=== PATIENT | male | born 1945 | race Hispanic/Latino ===

== ENCOUNTER → 2017-12-10 | Outpatient (CLI) | payer OTHER ==
[~2017-12-10] MED LIST: ASPI-1012 PO; INSLAN SQ; INSREG; LISI2.5T2 PO; LORA-705 PO; METF-446 PO; SIMV20TA6 PO; THERAGESIC TP
== END | disposition home or self-care (01) ==
LOC: RAH 12:30
PROVIDERS: ATTEND Physical Medicine & Rehabilitation
DX: M47.896 Other spondylosis, lumbar region (principal); M48.061 Spinal stenosis, lumbar region without neurogenic claudication; M51.36 Other intervertebral disc degeneration, lumbar region
CPT/HCPCS: 72148

== ENCOUNTER → 2018-03-26 | Outpatient (CLI) | payer OTHER | END | disposition home or self-care (01) | LOC: SHCH 09:01 | PROVIDERS: ATTEND Internal Medicine Cardiovascular Disease | DX: R94.31 Abnormal electrocardiogram [ECG] [EKG] (principal); I10 Essential (primary) hypertension | CPT/HCPCS: 71046; 93306 ==

== ENCOUNTER → 2018-03-26 | Outpatient (CLI) | payer OTHER | END | disposition home or self-care (01) | LOC: OIH 09:04 | PROVIDERS: ATTEND Internal Medicine Cardiovascular Disease | DX: Z01.810 Encounter for preprocedural cardiovascular examination (principal); R06.00 Dyspnea, unspecified | CPT/HCPCS: 71046 ==

== ENCOUNTER 2018-04-10 05:59 | Observation (INO) | payer OTHER | END 2018-04-11 14:00 | disposition home or self-care (01) | LOC: DAH 05:59 → DAHIP 06:00 → 4BH 13:07 ==

== ENCOUNTER → 2018-05-12 | Outpatient (CLI) | payer OTHER ==
[~2018-05-12] MED LIST changes: +ALBU8.5H8 IH; +DOXA2TAB2 PO; +ESOM40CA54 PO; +FISH1CAP27 PO; +FLUT16H NS; +GABA-529 PO; -INSLAN SQ; -INSREG; +LISI-613 PO; -LISI2.5T2 PO; -LORA-705 PO; +MV-M1TAB20 PO; +NOVALOG INSULIN SQ; -THERAGESIC TP; +VITA1TAB22 PO
== END | disposition home or self-care (01) ==
LOC: RAH 09:43
PROVIDERS: ATTEND Neurological Surgery
DX: M47.816 Spondylosis without myelopathy or radiculopathy, lumbar region (principal); M48.07 Spinal stenosis, lumbosacral region
CPT/HCPCS: 72100

== ENCOUNTER → 2020-02-15 | Outpatient (CLI) | payer OTHER ==
[~2020-02-15] MED LIST changes: +SIMV-43 PO; -SIMV20TA6 PO
== END | disposition home or self-care (01) ==
LOC: SHCH 08:26
PROVIDERS: ATTEND Internal Medicine Cardiovascular Disease
DX: I65.23 Occlusion and stenosis of bilateral carotid arteries (principal); I35.8 Other nonrheumatic aortic valve disorders; R06.00 Dyspnea, unspecified; I10 Essential (primary) hypertension; E78.5 Hyperlipidemia, unspecified; E11.9 Type 2 diabetes mellitus without complications
CPT/HCPCS: 93306; 93356; 93880

== ENCOUNTER → 2020-03-21 | Outpatient (CLI) | payer OTHER | END | disposition home or self-care (01) | LOC: OIH 11:30 | PROVIDERS: ATTEND Internal Medicine Cardiovascular Disease | DX: Z13.6 Encounter for screening for cardiovascular disorders (principal) | CPT/HCPCS: 75571 ==

== ENCOUNTER → 2020-10-05 | Outpatient (CLI) | payer OTHER ==
[~2020-10-05] MED LIST changes: -LISI-613 PO; +LISI20TA24 PO
== END | disposition home or self-care (01) ==
LOC: SHCH 10:47
PROVIDERS: ATTEND Internal Medicine Cardiovascular Disease
DX: I10 Essential (primary) hypertension (principal); R07.9 Chest pain, unspecified
CPT/HCPCS: 93306; 93356

== ENCOUNTER → 2022-10-02 | Outpatient (CLI) | payer OTHER | END | disposition home or self-care (01) | LOC: SHCH 08:40 | PROVIDERS: ATTEND Internal Medicine Cardiovascular Disease | DX: I65.23 Occlusion and stenosis of bilateral carotid arteries (principal); I35.1 Nonrheumatic aortic (valve) insufficiency; I11.9 Hypertensive heart disease without heart failure; E11.9 Type 2 diabetes mellitus without complications; E78.5 Hyperlipidemia, unspecified | CPT/HCPCS: 93306; 93880 ==

== ENCOUNTER → 2023-06-19 | Outpatient (CLI) | payer OTHER ==
[~2023-06-19] MED LIST changes: +VITA-427 PO; -VITA1TAB22 PO
[2023-06-19 15:12] LABS: CREATININE 1.2 mg/dL (0.5-1.3)
== END | disposition home or self-care (01) ==
LOC: LAB 14:05
PROVIDERS: ATTEND Otolaryngology
DX: H93.19 Tinnitus, unspecified ear (principal)
CPT/HCPCS: 36415; 82565; 84520

== ENCOUNTER → 2023-06-25 | Outpatient (CLI) | payer OTHER ==
[~2023-06-25] MED LIST changes: +GADOTERATE MEGLUMINE 10 MMOL/20 ML VIAL IV ONE
== END | disposition home or self-care (01) ==
LOC: RAH 08:25
PROVIDERS: ATTEND Otolaryngology
DX: G93.89 Other specified disorders of brain (principal); H93.19 Tinnitus, unspecified ear
CPT/HCPCS: 70553; A9575

== ENCOUNTER → 2024-07-04 | Outpatient (CLI) | payer OTHER ==
[~2024-07-04] MED LIST changes: -ESOM40CA54 PO; +ESOM40CA66 PO; -GADOTERATE MEGLUMINE 10 MMOL/20 ML VIAL IV ONE
== END | disposition home or self-care (01) ==
LOC: SHCH 09:36
PROVIDERS: ATTEND Internal Medicine Cardiovascular Disease
DX: I35.1 Nonrheumatic aortic (valve) insufficiency (principal); I10 Essential (primary) hypertension
CPT/HCPCS: 93306

== ENCOUNTER → 2024-07-06 | Outpatient (CLI) | payer OTHER ==
[2024-07-06] MEDS: REGADENOSON 0.4 MG/5 ML PF SYG IVP ONE (11:41)
== END | disposition home or self-care (01) ==
LOC: SHCH 10:22
PROVIDERS: ATTEND Internal Medicine Cardiovascular Disease
DX: I10 Essential (primary) hypertension (principal); R06.00 Dyspnea, unspecified; R00.8 Other abnormalities of heart beat; Z79.899 Other long term (current) drug therapy
CPT/HCPCS: 78452; 93017; J2785; A9500 ×2

== ENCOUNTER 2024-07-18 11:25 | Emergency (ER) | payer OTHER ==
[~2024-07-18] VITALS: Ht 165.1 cm; Wt 64.9 kg
--- NOTE | 2024-07-18 11:53 | ERN ---
General Chief Complaint: Foreign Body Stated Complaint: RIGHT EAR FOREIGN BODY Time Seen by MD: 11:27 History of Present Illness Initial Comments Mr Larose is a 78-year-old male who comes in today with a chief complaint of a broken hearing aid tip lodged in the right ear canal this occurring yesterday. He reports that there is a small circular police of the hearing aid that became dislodged and in his remaining in his ear. He denies pain, drainage, bleeding, tinnitus or vertigo. Patient reports that his hearing is slightly muffled but otherwise feels normal Allergies: Coded Allergies: No Known Allergies (Unverified Allergy, Unknown, 03/31/15) Home Meds Reported Medications [Novalog Insulin] No Conflict Check, 15 SQ HS PRN for HYPERGLYCEMIA 04/07/18 Albuterol Sulfate (Proair Hfa) 8.5 Gm Hfa.aer.ad, 2 PUFF IH DAILY PRN for S HORTNESS OF BREATH 04/07/18 Fluticasone Propionate (Fluticasone Propionate) 16 Gm [place].susp, 1 PUFF NS BID 04/07/18 Gabapentin (Gabapentin) 100 Mg Capsule, 100 MG PO DAILY, CAP 04/07/18 Esomeprazole Magnesium (Esomeprazole Magnesium) 40 Mg Capsule.dr, 40 MG PO DAILY, CAP 04/07/18 [place]-3 Fatty Acids/Fish Oil ([place] 3 1,000 mg Softgel) 1 Each Capsule, 1 EACH PO BID, CAP 04/07/18 Mv-Mn/Iron/FA/Herbal Cmplx#190 (Vitamin D3 Complete Caplet) 1 Each Tablet, 1 EACH PO DAILY, TAB 04/07/18 Vitamin B Complex (Vitamin B Complex) 1 Each Tablet, 1 EACH PO DAILY, TAB 04/07/18 Doxazosin Mesylate (Doxazosin Mesylate) 2 Mg Tablet, 2 MG PO DAILY, TAB 04/07/18 Lisinopril (Lisinopril) 20 Mg Tablet, 10 MG PO DAILY, TAB 04/07/18 Simvastatin (Simvastatin) 20 Mg Tablet, 20 MG PO HS, TAB 05/11/15 Aspirin (ASPIRIN) 325 Mg Tablet, 325 MG PO HS, TAB 05/11/15 Metformin HCl (Metformin HCl) 1,000 Mg Tablet, 1000 MG PO BID, TAB 05/11/15 Past Medical History Past Medical History: Diabetes-Type II, Hypertension Past Surgical History: Other ROS Dictation Constitutional: Negative for fever,chills, and weight loss Eyes: Negative for injury, pain,redness, an she feeling she given the medicine d discharge ENT: Care positive for foreign body sensation in the right ear Cardiovascular: Negative for chest pain, palpitations, and edema Respiratory: Negative for shortness of breath, cough, and wheezing, Abdomen/GI: Negative for abdominal pain, nausea, vomiting, diarrhea, and constipation Back: Negative for injury and pain : Negative for injury, bleeding and discharge MS/Extremity: Negative for injury and deformity Skin: Negative for rash, and discoloration Neuro: Negative for headache, weakness, numbness, tingling, and seizure Psych: Negative for suicide ideation, homicidal ideation, and hallucinations Physical Exam Physical Exam Dictation General: awake, alert, NAD Head/Face: Normocephalic, atraumatic Eyes: PERRL, EOMI, vision at baseline ENT: Visible plastic hearing a tip lodged in the external auditory canal, can not mildly erythematous no discharge or bleeding. Left ear canal normal Neck: Trachea midline, supple, no nuchal rigidity Cardiovascular: RRR, normal S1/S2, No MRGs, no JVD Respiratory: CTAB, no respiratory distress, No rales or wheezes Abdomen: Soft, non-tender, non-distended, normal bowel sounds, no guarding or rebound. Skin: Warm, dry, normal turgor, no rash MS/Extremity: Pulses equal, no cyanosis, neurovascular intact, FROM Neuro: COAx4, GCS 15, strength 5/5, CN 2-12 intact, normal cerebellar exam, normal gait, Psych: Normal behavior, mood, and affect normal MDM Patient had a non in bed, visibly foreign body, hearing a tip, in the external ear canal. No signs of infection. Removal was complete safe in the ED without sedation. No antibiotics required. Patient instructed to follow up with the audiology vendor for replacement or repair ED Course Vital Signs Date Time Temp Pulse Resp B/P (MAP) Pulse Ox O2 Delivery O2 Flow Rate FiO2 07/18/24 11:26 99.0 71 12 130/52 95 Room Air 0 Additional Procedures Additional Procedures : Progress Procedure Right ear foreign body removal Informed consent was obtained and patient was seated upright position. Nfl Player held the otoscope and auricle. Alligator forceps were used to carefully grasped and removed hearing aid dome tip in 1 attempt. Canal was reinspected. No retained foreign body. No bleeding or complications were noted. DX & DISP Disposition: Discharge Departure Impression: Primary Impression: Foreign body in right ear, initial encounter Condition: Stable Referrals: TIERRA STRANGE MD (PCP) MARIA ELENA MTZ MD July 18, 2024 11:53
[2024-07-18 12:03] VITALS: BP 133/78; PULSE 80; RESP 16; TEMP 98; O2SAT 98
== END 2024-07-18 12:05 | disposition home or self-care (01) ==
LOC: EDH 11:25
DX: T16.1XXA Foreign body in right ear, initial encounter (principal); E11.9 Type 2 diabetes mellitus without complications; I10 Essential (primary) hypertension; Z79.82 Long term (current) use of aspirin; Z79.84 Long term (current) use of oral hypoglycemic drugs; Z79.899 Other long term (current) drug therapy; W44.G1XA Audio device entering into or through a natural orifice, initial encounter
CPT/HCPCS: 69200; 99284

== ENCOUNTER 2024-09-16 13:40 | Emergency (ER) | payer OTHER ==
[~2024-09-16] VITALS: Ht 165.1 cm; Wt 65.3 kg
[2024-09-16] MEDS: LIDOCAINE HCL-MPF 2% 5ML VIAL IM STA (14:08)
[2024-09-16] MEDS ORDERED: CIPR7.5D7 OTIC (14:50)
--- NOTE | 2024-09-16 14:51 | ERN ---
General Chief Complaint: Earache Stated Complaint: LT EARACHE Time Seen by MD: 13:43 Source: patient History of Present Illness Initial Comments In his is a 79-year-old male coming in complaining of left ear pain. He states that he was sent over from his PCP for further evaluation. No fever no chills. Allergies: Coded Allergies: No Known Allergies (Unverified Allergy, Unknown, 03/31/15) Home Meds Reported Medications [Novalog Insulin] No Conflict Check, 15 SQ HS PRN for HYPERGLYCEMIA 04/07/18 Albuterol Sulfate (Proair Hfa) 8.5 Gm Hfa.aer.ad, 2 PUFF IH DAILY PRN for SHORTNESS OF BREATH 04/07/18 Fluticasone Propionate (Fluticasone Propionate) 16 Gm [place].susp, 1 PUFF NS BID 04/07/18 Gabapentin (Gabapentin) 100 Mg Capsule, 100 MG PO DAILY, CAP 04/07/18 Esomeprazole Magnesium (Esomeprazole Magnesium) 40 Mg Capsule.dr, 40 MG PO DAILY, CAP 04/07/18 [place]-3 Fatty Acids/Fish Oil ([place] 3 1,000 mg Softgel) 1 Each Capsule, 1 EACH PO BID, CAP 04/07/18 Mv-Mn/Iron/FA/Herbal Cmplx#190 (Vitamin D3 Complete Caplet) 1 Each Tablet, 1 EACH PO DAILY, TAB 04/07/18 Vitamin B Complex (Vitamin B Complex) 1 Each Tablet, 1 EACH PO DAILY, TAB 04/07/18 Doxazosin Mesylate (Doxazosin Mesylate) 2 Mg Tablet, 2 MG PO DAILY, TAB 04/07/18 Lisinopril (Lisinopril) 20 Mg Tablet, 10 MG PO DAILY, TAB 04/07/18 Simvastatin (Simvastatin) 20 Mg Tablet, 20 MG PO HS, TAB 05/11/15 Aspirin (ASPIRIN) 325 Mg Tablet, 325 MG PO HS, TAB 05/11/15 Metformin HCl (Metformin HCl) 1,000 Mg Tablet, 1000 MG PO BID, TAB 05/11/15 Past Medical History Past Medical History: Diabetes-Type II, Hypertension Past Surgical History: Other ROS Dictation CONSTITUTIONAL: No chills, no fever, no weakness, no diaphoresis, no malaise. HEAD/FACE: No signs of trauma. EENT: No eye pain, no blurred vision, no tearing, no double vision, ear pain, no ear discharge, no nose pain, no nasal congestion, no throat pain, no throat swelling, no mouth pain. RESPIRATORY: No cough, no orthopnea, no SOB, no stridor, no wheezing. CARDIOVASCULAR: No chest pain, no edema, no palpitations, no syncope. GASTROINTESTINAL/ABDOMINAL: No abdominal pain, no constipation, no diarrhea, no nausea, no vomiting. GENITOURINARY: No abnormal discharge, no dysuria, no frequent urination, no hematuria. No complaints of pain in the genitals. MUSCULOSKELETAL: No back pain, no gout, no joint pain, no joint swelling, no muscle pain, no muscle stiffness, no neck pain. INTEGUMENTARY: No change in color, no change in hair/nails, no dryness, no lesion, no lumps, no rash. NEUROLOGICAL/PSYCH: No anxiety, not depressed, no emotional problem, no headache, no numbness, no pre-existing deficit, no history of seizures, no tremors, no weakness. HEMATOLOGIC/LYMPHATIC: Not anemic, no history of blood clots, no apparent bleeding, no bruising, glands not swollen. All Systems Negative, Except as Noted. Physical Exam Physical Exam Dictation VITAL SIGNS: Reviewed. GENERAL APPEARANCE: Alert, oriented x3, no acute distress, obese. HEAD AND FACE: Non-traumatic. EYES: PERRL, pink conjunctivas, eyelid no trauma, anterior chamber clear. EARS: Pinnas intact and no signs of trauma or erythema. Ear canals clear and no discharge. TMs no erythema. NOSE: No discharge, no bleeding. OROPHARYNX: Mouth normal, teeth no caries, tongue pink. Pharynx clear, no erythema. Tonsils no exudates, no abscesses noted. Mucous membrane moist. NECK: Supple, non-tender, no thyromegaly, no masses, no JVD, no bruits. BREAST: Deferred. CHEST: No tenderness, no crepitus, no paradoxical movement, no retractions. LUNGS: Clear, well-ventilated, symmetric, no rales, no wheezing, no rhonchi, no stridor, good breath sounds bilaterally. HEART: Regular rate, regular rhythm, no murmur, no gallops. VASCULAR: No peripheral edema. ABDOMEN: Soft, positive bowel sounds, nondistended, no guarding, nontender, no rebound, no masses no hepatomegaly, no splenomegaly, no Higginbotham's sign, no hernias. RECTAL: Deferred. GENITAL: Deferred. NEUROLOGICAL: Normal speech, gross motor function intact, gross sensory function intact. MUSCULOSKELETAL: Neck nontender, full range of motion, back nontender, full range of motion. EXTREMITIES: Nontender, full range of motion. SKIN: Color pink, dry, no turgor, no rash, no lacerations, no abrasions, no contusions. LYMPHATICS: Deferred. Results Laboratory and Microbiology Labs Reviewed?: Yes MDM MDM: Differential diagnosis: Otitis externa, Rationale: Tests considered and ordered secondary to shared decision making include: Previous outside records reviewed: Old ER visits. Risk of complication and/or morbidity or mortality of patient management: None Medications-Per medication reconciliation Need for hospitalization: Patient does not meet criteria for hospitalization. Need for emergency major/minor surgery: No Patient is a 79-year-old male currently complaining of earache. Patient received lidocaine topical states he feels much better we will be discharged in stable condition with a diagnosis of otitis externa medication will be provided for symptomatic relief. ED Course Orders Procedure Category Date Status Time Lidocaine Hcl-Mpf 2% PHA 09/16/24 Complete 5ml Vial (Lidocaine 14:03 Current Medications Medications (Trade) Dose Ordered Sig/Dasia Route PRN Reason Start Time Stop Time Status Last Admin Dose Admin Lidocaine HCl (Lidocaine HCl-Mpf 2% 5ml Vial) 5 ml ONCE STAT IM 09/16/24 14:03 09/16/24 14:06 DC 09/16/24 14:08 Vital Signs Date Time Temp Pulse Resp B/P (MAP) Pulse Ox O2 Delivery O2 Flow Rate FiO2 09/16/24 13:49 97.5 72 20 106/46 99 Room Air* 0 21 09/16/24 13:41 97.5 72 20 106/46 99 Room Air DX & DISP Disposition: Discharge Departure Impression: Primary Impression: Otitis externa Condition: Stable Scripts Ciprofloxacin HCl/Dexameth (Ciproflox-Dexameth Otic Susp) 0.3 %-0.1 % Drops.susp 4 DROP OTIC BID for 7 Days, #7.5 ML 0 Refills Prov: NORMA MUNOZ MD 09/16/24 Additional Instructions: FOLLOW-UP WITH PRIMARY CARE PROVIDER IN 1 TO 2 DAYS. TAKE MEDICATIONS DIRECTED HERE IN THE EMERGENCY ROOM. OKAY TO CONTINUE HOME MEDICATIONS UNLESS OTHERWISE DISCUSSED DURING YOUR VISIT IN THE EMERGENCY ROOM TODAY. RETURN TO YOUR NEAREST EMERGENCY ROOM IF SYMPTOMS WORSEN OR IF THERE IS NO IMPROVEMENT. CALL 911 IF YOU NEED IMMEDIATE ASSISTANCE. TAKE TYLENOL [id number] NEEDED AND IF NO CONTRAINDICATIONS ARE PRESENT. INCREASE ORAL HYDRATION. A WOUND CULTURE OR URINE CULTURE WAS ORDERED HERE IN THE EMERGENCY ROOM DEPARTMENT PLEASE FOLLOW-UP WITH PRIMARY CARE PROVIDER AND ADVISE THEM TO GET REPORTS FROM OUR FACILITY. IF YOU HAD ANY ALBERTINA WRAP/SPLINTS THAT WERE APPLIED HERE, PLEASE DO NOT REMOVE THEM UNTIL YOU SEE YOUR PRIMARY CARE OR SPECIALTY. Referrals: Referrals: TIERRA STRANGE MD (PCP) Time of Disposition: 14:50 NORMA MUNOZ MD Sep 16, 2024 14:50
[2024-09-16 14:52] VITALS: BP 115/52; PULSE 70; RESP 20; TEMP 97.5; O2SAT 99
== END 2024-09-16 15:00 | disposition home or self-care (01) ==
LOC: EDH 13:43
DX: H60.92 Unspecified otitis externa, left ear (principal); E11.9 Type 2 diabetes mellitus without complications; I10 Essential (primary) hypertension; Z79.82 Long term (current) use of aspirin; Z79.84 Long term (current) use of oral hypoglycemic drugs; Z79.899 Other long term (current) drug therapy
CPT/HCPCS: 99283; 96372; J3490

== ENCOUNTER 2025-01-21 11:31 | Emergency (ER) | payer OTHER ==
[~2025-01-21] VITALS: Ht 165.1 cm; Wt 64.4 kg
[~2025-01-21 11:31] MED LIST changes: +CIPR7.5D7 OTIC
--- NOTE | 2025-01-21 12:44 | HMCIMG ---
STUDY: X-RAY OF THE LUMBAR SPINE, 3 VIEWS HISTORY: Fall with low back pain. TECHNIQUE: Three views of the lumbar spine are submitted for interpretation. COMPARISON: None provided. FINDINGS: Vertebral bodies: Lumbar vertebral bodies are normal in height with preserved overall lumbar lordosis. No acute compression fracture is identified. Intervertebral disc spaces: Degenerative changes are present in the form of multilevel mild reduction in disc heights with associated endplate sclerosis and marginal osteophytes, more severe at L5???S1 where there is a vacuum phenomenon. Postoperative changes: Bilateral transpedicular screw fixation is present at L4 and L5 with an interbody disc spacer at L4???L5. Hardware appears intact without obvious complication on radiographs. Alignment: No evidence of spondylolysis or spondylolisthesis. Sacroiliac joints: Mild bilateral sacroiliitis is noted. Soft tissues: Prevertebral and paravertebral soft tissues are unremarkable. IMPRESSION: * No acute fracture or malalignment of the lumbar spine. * Postoperative changes with bilateral transpedicular screw fixation at L4???L5 and interbody disc spacer at L4???L5. * Multilevel degenerative disc disease with endplate sclerosis and osteophytes, most pronounced at L5???S1 with vacuum phenomenon. * Mild bilateral sacroiliitis. * MRI of the lumbar spine and sacroiliac joints may be helpful for further evaluation if clinically indicated. /[place]
--- NOTE | 2025-01-21 13:33 | HMCIMG ---
EXAM: CT Head Without IV contrast. CLINICAL HISTORY: fall, head injury dizziness TECHNIQUE: Axial computed tomography images of the head/brain without intravenous contrast. COMPARISON: None provided. FINDINGS: BRAIN: There is diffuse cerebral atrophy, evidenced by prominence of the cortical sulci and ventricular system, compatible with age-related changes. Multiple scattered areas of low attenuation in the periventricular and deep white matter, consistent with chronic microvascular ischemic changes. No evidence of acute hemorrhage. No mass lesion. No CT evidence for acute territorial infarct. No midline shift or extra-axial collections. VENTRICLES: No hydrocephalus. ORBITS: The orbits are unremarkable. SINUSES AND MASTOIDS: Minimal opacification of left mastoid air cells, suggestive of mastoiditis. The paranasal sinuses are clear. BONES: No fracture. SOFT TISSUES: Unremarkable. IMPRESSION: 1. No acute intracranial findings. 2. Minimal left mastoid air cell opacification, suggestive of mastoiditis. /[place]
--- NOTE | 2025-01-21 13:35 | HMCIMG ---
EXAM: CT Cervical Spine Without IV contrast. CLINICAL HISTORY: fall, head injury dizziness TECHNIQUE: Axial computed tomography images of the cervical spine without intravenous contrast. Sagittal and coronal reformatted images were generated. COMPARISON: None provided. FINDINGS: ALIGNMENT: Bony alignment is anatomic. DEGENERATIVE CHANGES: Multilevel degenerative changes in the form of marginal osteophytes, uncovertebral joint hypertrophy, facet joint osteoarthritis, and moderate to severe intervertebral disc space narrowing, more predominant at C1-C2, C5-C6, and C6-C7 levels. SOFT TISSUES: The prevertebral soft tissues are within normal limits. BONES: No acute fracture or aggressive appearing osseous lesion. IMPRESSION: 1. No acute osseous injury. 2. Moderate to severe cervical spondylosis. /[place]
[2025-01-21 14:09] LABS: IMMATURE GRANULOCYTE ABSOLUTE 0.05 K/uL (0-1); NUCLEATED RED BLOOD CELLS 0.0 % (0.0-0.19); PLATELET COUNT (AUTO) 194 K/uL (130-400); RED BLOOD CELL COUNT(AUTO) 4.46 MIL/uL (4.50-6.20); RED CELL DISTRIBUTION WIDTH 14.1 % (11.0-15.5); WHITE BLOOD COUNT (AUTO) 10.7 K/uL (4.8-10.8)
[2025-01-21 14:27] LABS: CREATININE 1.2 mg/dL (0.5-1.3); GLOMERULAR FILTR. RATE CALC 62.0 mL/min (>90); GLUCOSE,RANDOM 168.0 mg/dL (70-105); SODIUM SERUM 143.0 mmol/L (136-145); UREA NITROGEN, BLOOD 23.0 mg/dL (7-18)
--- NOTE | 2025-01-21 14:34 | ERN ---
ED Note History of Present Illness Stated Complaint: S/P FALL Chief Complaint: Mechanical Fall Time Seen by MD: 11:32 Time Seen by Midlevel: 11:36 Dictation: 79-year-old male with a history of hypertension coming in status post mechanical fall. Patient states it with a educated in the shower slipped fell backwards, tried to hang onto a bar with a handle on the wall but broke and fell back and hit his head on the tile. Denies any LOC. denies any blood thinners. Patient is complaining of a headache, neck pain and lower back pain. Patient states he has a previous back surgery. Allergies: Coded Allergies: No Known Allergies (Unverified Allergy, Unknown, 03/31/15) Home Meds Active Scripts Ciprofloxacin HCl/Dexameth (Ciproflox-Dexameth Otic Susp) 0.3 %-0.1 % Drops.susp, 4 DROP OTIC BID for 7 Days, #7.5 ML 0 Refills Prov:NORMA MUNOZ MD 09/16/24 Reported Medications [Novalog Insulin] No Conflict Check, 15 SQ HS PRN for HYPERGLYCEMIA 04/07/18 Albuterol Sulfate (Proair Hfa) 8.5 Gm Hfa.aer.ad, 2 PUFF IH DAILY PRN for SHORTNESS OF BREATH 04/07/18 Fluticasone Propionate (Fluticasone Propionate) 16 Gm [place].susp, 1 PUFF NS BID 04/07/18 Gabapentin (Gabapentin) 100 Mg Capsule, 100 MG PO DAILY, CAP 04/07/18 Esomeprazole Magnesium (Esomeprazole Magnesium) 40 Mg Capsule.dr, 40 MG PO DAILY, CAP 04/07/18 Christmas-3 Fatty Acids/Fish Oil ([place] 3 1,000 mg Softgel) 1 Each Capsule, 1 EACH PO BID, CAP 04/07/18 Mv-Mn/Iron/FA/Herbal Cmplx#190 (Vitamin D3 Complete Caplet) 1 Each Tablet, 1 EACH PO DAILY, TAB 04/07/18 Vitamin B Complex (Vitamin B Complex) 1 Each Tablet, 1 EACH PO DAILY, TAB 04/07/18 Doxazosin Mesylate (Doxazosin Mesylate) 2 Mg Tablet, 2 MG PO DAILY, TAB 04/07/18 Lisinopril (Lisinopril) 20 Mg Tablet, 10 MG PO DAILY, TAB 04/07/18 Simvastatin (Simvastatin) 20 Mg Tablet, 20 MG PO HS, TAB 05/11/15 Aspirin (ASPIRIN) 325 Mg Tablet, 325 MG PO HS, TAB 05/11/15 Metformin HCl (Metformin HCl) 1,000 Mg Tablet, 1000 MG PO BID, TAB 05/11/15 Past Medical History Past Medical History: Diabetes-Type II, Hypertension Surgical History: Other Surgical History Other: BACK AND EAR SX Review of System Dictation Constitutional: Negative for fever,chills, and weight loss Eyes: Negative for injury, pain,redness, and discharge ENT: Negative for injury,pain or swelling Cardiovascular: Negative for chest pain, palpitations, and edema Respiratory: Negative for shortness of breath, cough, and wheezing, Abdomen/GI: Negative for abdominal pain, nausea, vomiting, diarrhea, and constipation Back: Negative for injury and pain : Negative for injury, bleeding and discharge MS/Extremity: Negative for injury and deformity Skin: Negative for rash, and discoloration Neuro: Complaining of the headache, negative weakness negative numbness, negative tingling Psych: Negative for suicide ideation, homicidal ideation, and hallucinations Review of Systems: was completed Initial Vital Sign VS Vital Signs Date Time Temp Pulse Resp B/P (MAP) Pulse Ox O2 Delivery O2 Flow Rate FiO2 01/21/25 11:32 96.3 68 18 137/71 99 Room Air 0 01/21/25 12:58 21 Physical Exam Dictation Constitutional: Negative for fever,chills, and weight loss Eyes: Negative for injury, pain,redness, and discharge ENT: Negative for injury,pain or swelling, no drainage, no pain on pulling of the pain and, no pain around the mastoid bone Cardiovascular: Negative for chest pain, palpitations, and edema Respiratory: Negative for shortness of breath, cough, and wheezing, Abdomen/GI: Negative for abdominal pain, nausea, vomiting, diarrhea, and constipation Back: Negative for injury and pain : Negative for injury, bleeding and discharge MS/Extremity: Negative for injury and deformity Skin: Negative for rash, and discoloration Neuro: Negative for headache, weakness, numbness, tingling, and seizure Psych: Negative for suicide ideation, homicidal ideation, and hallucinations Results (Laboratory/Radiology) Laboratory/Radiology Laboratory Tests Test 01/21/25 14:06 White Blood Count 10.7 K/uL (4.8-10.8) Red Blood Count 4.46 MIL/uL (4.50-6.20) L Hemoglobin 13.1 g/dL (14.0-18.0) L Hematocrit 40.7 % (42-54) L Mean Corpuscular Volume 91.3 fL (79-99) Mean Corpuscular Hemoglobin 29.4 pg (27.0-33.0) Mean Corpuscular Hemoglobin Concent 32.2 g/dL (32.0-36.0) Red Cell Distribution Width 14.1 % (11.0-15.5) Platelet Count 194 K/uL (130-400) Mean Platelet Volume 12.0 fL (7.5-10.5) H Immature Granulocyte % (Auto) 0.5 % (0-1) Neutrophils (%) (Auto) 71.8 % (40.0-77.0) Lymphocytes (%) (Auto) 16.6 % (21.0-51.0) L Monocytes (%) (Auto) 6.7 % (3.0-13.0) Eosinophils (%) (Auto) 4.0 % (0.0-8.0) Basophils (%) (Auto) 0.4 % (0.0-5.0) Neutrophils # (Auto) 7.7 K/uL (1.8-7.7) Lymphocytes # (Auto) 1.8 K/uL (1.0-4.8) Monocytes # (Auto) 0.7 K/uL (0.1-1.0) Eosinophils # (Auto) 0.43 K/uL (0.00-0.70) Basophils # (Auto) 0.04 K/uL (0.00-0.20) Absolute Immature Granulocyte (auto 0.05 K/uL (0-1) Nucleated Red Blood Cells 0.0 % (0.0-0.19) Sodium Level 143 mmol/L (136-145) Potassium Level 5.0 mmol/L (3.5-5.1) Chloride Level 105 mmol/L (101-111) Carbon Dioxide Level 30 mmol/L (21-32) Blood Urea Nitrogen 23 mg/dL (7-18) H Creatinine 1.2 mg/dL (0.5-1.3) Glomerular Filtration Rate Calc 62 mL/min (>90) Random Glucose 168 mg/dL (70-105) H Total Calcium 9.2 mg/dL (8.5-10.1) Labs Reviewed?: Yes X-RAY Comment: [facility] [address] [place] [address] IMAGING REPORT Signed PATIENT: ROGER BOOTHE V MR#: [id number] : 1945 SEX: M AGE: 79 LOCATION: EDH ORDER 35 STATUS: REG ER [facility] REPORT#: [id number] SERVICE 35 REASON: fall , back pain ORDERING PHYSICIAN: MANUEL MCCAIN CNP PROCEDURE: LUMB 2 3VW - LUMBAR SPINE 2-3VWS STUDY: X-RAY OF THE LUMBAR SPINE, 3 VIEWS HISTORY: Fall with low back pain. TECHNIQUE: Three views of the lumbar spine are submitted for interpretation. COMPARISON: None provided. FINDINGS: Vertebral bodies: Lumbar vertebral bodies are normal in height with preserved overall lumbar lordosis. No acute compression fracture is identified. Intervertebral disc spaces: Degenerative changes are present in the form of multilevel mild reduction in disc heights with associated endplate sclerosis and marginal osteophytes, more severe at L5???S1 where there is a vacuum phenomenon. Postoperative changes: Bilateral transpedicular screw fixation is present at L4 and L5 with an interbody disc spacer at L4???L5. Hardware appears intact without obvious complication on radiographs. Alignment: No evidence of spondylolysis or spondylolisthesis. Sacroiliac joints: Mild bilateral sacroiliitis is noted. Soft tissues: Prevertebral and paravertebral soft tissues are unremarkable. IMPRESSION: * No acute fracture or malalignment of the lumbar spine. * Postoperative changes with bilateral transpedicular screw fixation at L4???L5 and interbody disc spacer at L4???L5. * Multilevel degenerative disc disease with endplate sclerosis and osteophytes, most pronounced at L5???S1 with vacuum phenomenon. * Mild bilateral sacroiliitis. * MRI of the lumbar spine and sacroiliac joints may be helpful for further evaluation if clinically indicated. /[place] DICTATED BY: KANDIS WEBER MD DATE: 01/21/251343 ELECTRONICALLY SIGNED BY: KANDIS WEBER MD DATE: 01/21/251343 CT Scan Comment: [place] [address] [place] [id number] IMAGING REPORT Signed PATIENT: ROGER BOOTHE V MR#: [id number] : 1945 SEX: M AGE: 79 LOCATION: ED ORDER 35 STATUS: REG ER REPORT#: [id number] SERVICE 35 REASON: fall, head injury dizziness ORDERING PHYSICIAN: MANUEL MCCAIN CNP PROCEDURE: HEAD WO - CT HEAD/BRAIN W/O CONTRAST EXAM: CT Head Without IV contrast. CLINICAL HISTORY: fall, head injury dizziness TECHNIQUE: Axial computed tomography images of the head/brain without intravenous contrast. COMPARISON: None provided. FINDINGS: BRAIN: There is diffuse cerebral atrophy, evidenced by prominence of the cortical sulci and ventricular system, compatible with age-related changes. Multiple scattered areas of low attenuation in the periventricular and deep white matter, consistent with chronic microvascular ischemic changes. No evidence of acute hemorrhage. No mass lesion. No CT evidence for acute territorial infarct. No midline shift or extra-axial collections. VENTRICLES: No hydrocephalus. ORBITS: The orbits are unremarkable. SINUSES AND MASTOIDS: Minimal opacification of left mastoid air cells, suggestive of mastoiditis. The paranasal sinuses are clear. BONES: No fracture. SOFT TISSUES: Unremarkable. IMPRESSION: 1. No acute intracranial findings. 2. Minimal left mastoid air cell opacification, suggestive of mastoiditis. /[facility] [address] [place] [id number] IMAGING REPORT Signed PATIENT: ROGER BOOTHE V MR#: [id number] : 1945 SEX: M AGE: 79 LOCATION: ED ORDER 35 STATUS: REG ER [facility] REPORT#: [id number] SERVICE REASON: fall, head injury dizziness ORDERING PHYSICIAN: MANUEL MCCAIN CNP PROCEDURE: C SPIN WO - CT CERVICAL SPINE W/O CONTRAST EXAM: CT Cervical Spine Without IV contrast. CLINICAL HISTORY: fall, head injury dizziness TECHNIQUE: Axial computed tomography images of the cervical spine without intravenous contrast. Sagittal and coronal reformatted images were generated. COMPARISON: None provided. FINDINGS: ALIGNMENT: Bony alignment is anatomic. DEGENERATIVE CHANGES: Multilevel degenerative changes in the form of marginal osteophytes, uncovertebral joint hypertrophy, facet joint osteoarthritis, and moderate to severe intervertebral disc space narrowing, more predominant at C1-C2, C5-C6, and C6-C7 levels. SOFT TISSUES: The prevertebral soft tissues are within normal limits. BONES: No acute fracture or aggressive appearing osseous lesion. IMPRESSION: 1. No acute osseous injury. 2. Moderate to severe cervical spondylosis. /[place] DICTATED BY: SAEED MERAZ Jr., MD DATE: 01/21/251434 ELECTRONICALLY SIGNED BY: SAEED MERAZ Jr., MD DATE: 01/21/251434 ED Course ED Course Orders Procedure Category Date Status Time Ct Head/Brain W/O CT 01/21/25 Resulted Contrast 11:36 Ct Cervical Spine W/O CT 01/21/25 Resulted Contrast 11:36 Lumbar Spine 2-3vws RAD 01/21/25 Resulted 11:36 Tramadol Hcl (Ultram) PHA 01/21/25 Complete 11:36 Cbc With Differential LAB 01/21/25 Complete 13:55 Basic Metabolic Panel LAB 01/21/25 Complete 13:55 Current Medications Medications (Trade) Dose Ordered Sig/Dasia Route PRN Reason Start Time Stop Time Status Last Admin Dose Admin Tramadol HCl (UltRAM) 50 mg ONCE STAT PO 01/21/25 11:36 01/21/25 11:38 DC 01/21/25 12:09 Vital Signs Date Time Temp Pulse Resp B/P (MAP) Pulse Ox O2 Delivery O2 Flow Rate FiO2 01/21/25 12:58 96.3 68 18 137/71 99 Room Air* 0 21 01/21/25 11:32 96.3 68 18 137/71 99 Room Air 0 Medical Decision Making MDM MDM:79-year-old male with a history of hypertension coming in status post mechanical fall. Patient states it with a educated in the shower slipped fell backwards, tried to hang onto a bar with a handle on the wall but broke and fell back and hit his head on the tile. Denies any LOC. denies any blood thinners. Patient is complaining of a headache, neck pain and lower back pain. Patient states he has a previous back surgery. CT scan of the head shows no acute intracranial findings, minimal left mastoid air of the mastoiditis. Discussed findings with the patient. 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 States he is taking ear drop antibiotics. CBC shows no leukocytosis, no anemia, no thrombocytopenia. There is no pain on pulling of the pinna or the around the mastoid area on palpation. There is no drainage coming from the ear. Patient will be discharged to follow up outpatient as scheduled with the his specialist. Differential diagnosis: SDH, ICH, head contusion, sprain Rationale: Tests considered and ordered secondary to shared decision making include: Previous outside records reviewed: Old ER visits. Risk of complication and/or morbidity or mortality of patient management: None Medications-Per medication reconciliation Need for hospitalization: Patient does not meet criteria for hospitalization. Need for emergency major/minor surgery: No There are no social concerns with this patient. Prescription drug management Prescriptions will include symptomatic care Patient's prior external medical records from other ER visits were reviewed by gia freedman as indicated. Prior testing and results from previous visits were reviewed. Prior tests were taken into account with medical decision making and resource utilization, independent historian/historians were used to obtain complete medical history. I independently interpreted the test that were performed, results were reviewed by me and considered findings on radiology if ordered. Medical management and examination interpretation discussions were had by me with other qualified healthcare professionals as indicated for the patient's care. DX & DISP Disposition: Discharge Departure Impression: Primary Impression: Fall Additional Impressions: Contusion of head, Back pain Condition: Stable Referrals: TIERRA STRANGE MD (PCP) Time of Disposition: 14:36 I have reviewed the case, and I agree with, Diagnosis and Plan MANUEL MCCAIN [facility] Jan 21, 2025 14:34
[2025-01-21 14:46] VITALS: BP 143/68; PULSE 66; RESP 17; TEMP 97.8; O2SAT 99
--- NOTE | 2025-01-21 14:51 | NUR ---
PT STABLE NO DISTRESS VITALS WNL NO C/O PAIN NOW, INSTRUCTIONS GIVEN PT VERBALIZED UNDERSTANDING. PT HAS NO IV AT THIS TIME. PT DRIVEN HOME BY .
== END 2025-01-21 14:52 | disposition home or self-care (01) ==
LOC: EDH 11:31
DX: S00.93XA Contusion of unspecified part of head, initial encounter (principal); M54.2 Cervicalgia; M54.50 Low back pain, unspecified; E11.9 Type 2 diabetes mellitus without complications; I10 Essential (primary) hypertension; Z79.84 Long term (current) use of oral hypoglycemic drugs; Z79.82 Long term (current) use of aspirin; Z79.899 Other long term (current) drug therapy; W01.198A Fall on same level from slipping, tripping and stumbling with subsequent striking against other object, initial encounter; Y93.89 Activity, other specified; Y92.89 Other specified places as the place of occurrence of the external cause; Y99.8 Other external cause status
CPT/HCPCS: 36415; 70450; 72100; 72125; 80048; 85025; 99284

== ENCOUNTER 2025-01-23 11:35 | Emergency (ER) | payer OTHER ==
[~2025-01-23] VITALS: Ht 165.1 cm; Wt 63.5 kg
--- NOTE | 2025-01-23 11:45 | ERN ---
ED Note History of Present Illness Stated Complaint: FALL Chief Complaint: Mechanical Fall Time Seen by MD: 11:39 Dictation: HE 79-YEAR-OLD MALE COMING IN TODAY WITH COMPLAINTS OF RIGHT LATERAL HIP AND LEFT POSTERIOR LUMBAR PAIN STATUS POST ONSET 1 HOUR PRIOR TO ARRIVAL. HE STATES HE WAS ON THE COMMODE WITH HIS SOCKS ON WHEN HE WENT TO SIT DOWN HIS FEET SLIPPED OUT FROM UNDER HIM HE SLID OFF THE TOILET SEAT TO HIS FLOOR. IT UP AND WALK ON HIS OWN. NO SHORTENING OR ROTATION OF EITHER EXTREMITY HE DOES STATE HE HAS HAD A PRIOR BACK SURGERY. NEUROVASCULAR CMS INTACT TO HIS LOWER EXTREMITIES NO SADDLE PARESTHESIA Allergies: Coded Allergies: No Known Allergies (Unverified Allergy, Unknown, 03/31/15) Home Meds Active Scripts Ciprofloxacin HCl/Dexameth (Ciproflox-Dexameth Otic Susp) 0.3 %-0.1 % Drops.susp, 4 DROP OTIC BID for 7 Days, #7.5 ML 0 Refills Prov:NORMA MUNOZ MD 09/16/24 Reported Medications [Novalog Insulin] No Conflict Check, 15 SQ HS PRN for HYPERGLYCEMIA 04/07/18 Albuterol Sulfate (Proair Hfa) 8.5 Gm Hfa.aer.ad, 2 PUFF IH DAILY PRN for SHORTNESS OF BREATH 04/07/18 Fluticasone Propionate (Fluticasone Propionate) 16 Gm [place].susp, 1 PUFF NS BID 04/07/18 Gabapentin (Gabapentin) 100 Mg Capsule, 100 MG PO DAILY, CAP 04/07/18 Esomeprazole Magnesium (Esomeprazole Magnesium) 40 Mg Capsule.dr, 40 MG PO DAILY, CAP 04/07/18 [place]-3 Fatty Acids/Fish Oil ([place] 3 1,000 mg Softgel) 1 Each Capsule, 1 EACH PO BID, CAP 04/07/18 Mv-Mn/Iron/FA/Herbal Cmplx#190 (Vitamin D3 Complete Caplet) 1 Each Tablet, 1 EACH PO DAILY, TAB 04/07/18 Vitamin B Complex (Vitamin B Complex) 1 Each Tablet, 1 EACH PO DAILY, TAB 04/07/18 Doxazosin Mesylate (Doxazosin Mesylate) 2 Mg Tablet, 2 MG PO DAILY, TAB 04/07/18 Lisinopril (Lisinopril) 20 Mg Tablet, 10 MG PO DAILY, TAB 1/28/19 Simvastatin (Simvastatin) 20 Mg Tablet, 20 MG PO HS, TAB 05/11/15 Aspirin (ASPIRIN) 325 Mg Tablet, 325 MG PO HS, TAB 05/11/15 Metformin HCl (Metformin HCl) 1,000 Mg Tablet, 1000 MG PO BID, TAB 05/11/15 Past Medical History Past Medical History: Diabetes-Type II, Hypertension Surgical History: Other Surgical History Other: BACK AND EAR SX RN Note Reviewed/Agreed w/PFSH: Yes Review of System Dictation CONSTITUTIONAL: NEGATIVE EXCEPT FOR HPI HEAD/FACE: NEGATIVE EXCEPT FOR HPI EENT: NEGATIVE EXCEPT FOR HPI RESPIRATORY: NEGATIVE EXCEPT FOR HPI GASTROINTESTINAL/ABDOMINAL: NEGATIVE EXCEPT FOR HPI GENITOURINARY: NEGATIVE EXCEPT FOR HPI MUSCULOSKELETAL: NEGATIVE EXCEPT FOR HPI RIGHT LATERAL HIPS/LEFT LUMBAR PAIN INTEGUMENTARY: NEGATIVE EXCEPT FOR HPI NEUROLOGICAL/PSYCH: NEGATIVE EXCEPT FOR HPI HEMATOLOGIC/LYMPHATIC: NEGATIVE EXCEPT FOR HPI ALL SYSTEMS NEGATIVE, EXCEPT NOTED ABOVE. 13 POINT REVIEW OF SYSTEMS ASSESSED AND ALL NEGATIVE EXCEPT FOR ABOVE. Initial Vital Sign VS Vital Signs Date Time Temp Pulse Resp B/P (MAP) Pulse Ox O2 Delivery O2 Flow Rate FiO2 01/23/25 11:39 97.5 67 18 123/58 97 Physical Exam Dictation VITAL SIGNS REVIEWED GENERAL APPEARANCE: ALERT, ORIENTED X 3, MODERATE ACUTE DISTRESS, WELL DEVELOPED, NOURISHED. HEAD AND FACE: NON-TRAUMATIC. EYES: PERRL, PINK CONJUNCTIVAS, EYELID NO TRAUMA, ANTERIOR CHAMBER WITH ARCUS SENILIS. EARS: PINNAS INTACT AND NO SIGNS OF TRAUMA OR ERYTHEMA EAR CANALS CLEAR AND NO DISCHARGE TM NO ERYTHEMA NOSE: NO DISCHARGE, NO BLEEDING. OROPHARYNX: MOUTH NORMAL, TONGUE PINK, PHARYNX CLEAR,NO ERYTHEMA, TONSILS NO EXUDATES, NO ABSCESSES NOTED, MUCOUS MEMBRANE MOIST NECK: SUPPLE, NON-TENDER, NO THYROMEGALY, NO MASSES, NO JVD, NO BRUITS BREAST:DEFERRED CHEST:NO TENDERNESS, NO CREPITUS, NO PARADOXICAL MOVEMENT, NO RETRACTIONS LUNGS:CLEAR, WELL-VENTILATED, SYMMETRIC, NO RALES, NO WHEEZING, NO RHONCHI, NO STRIDOR, GOOD BREATH SOUNDS BILATERALLY HEART: REGULAR RATE, REGULAR RHYTHM, NO MURMUR, NO GALLOPS VASCULAR: NO PERIPHERAL EDEMA, ABDOMEN: SOFT, POSITIVE BOWEL SOUNDS, NONDISTENDED, NO GUARDING, NONTENDER, NO REBOUND, NO MASSES NO HEPATOMEGALY, NO SPLENOMEGALY, NO CENTENO'S SIGN, NO HERNIAS. RECTAL: DEFERRED GENITAL: DEFERRED NEUROLOGICAL: NORMAL SPEECH, MOTOR FUNCTION INTACT, DIFFUSE LEFT LUMBAR PAIN NO MIDLINE SPINE PAIN NO STEP-OFFS. EXTREMITIES: RIGHT LATERAL HIP TENDERNESS WITH PALPATION. NO SHORTENING OR ROTATION OF RIGHT LEG SKIN: COLOR PINK, DRY, NO TURGOR, NO RASH, NO LACERATIONS, NO ABRASIONS, NO CONTUSIONS. LYMPHATIC: DEFERRED Results (Laboratory/Radiology) Laboratory/Radiology 1220/RIGHT HIP X-RAY NEGATIVE FOR FRACTURE DEGENERATIVE CHANGES ONLY LUMBAR FILM DEMONSTRATES INTACT INSTRUMENTATION SACRAL FRACTURE Labs Reviewed?: Yes ED Course ED Course Orders Procedure Category Date Status Time Hip Unilat 2-3vw Right RAD 01/23/25 Taken 11:42 Lumbar Spine 2-3vws RAD 01/23/25 Taken 11:42 Acetaminophen With PHA 01/23/25 Complete Codeine (Tylenol-Code 12:00 Current Medications Medications (Trade) Dose Ordered Sig/Dasia Route PRN Reason Start Time Stop Time Status Last Admin Dose Admin Acetaminophen/ Codeine Phosphate (TYLenol-coDEINE TAB) 2 tab ONCE ONCE PO 01/23/25 12:00 01/23/25 12:01 DC 01/23/25 11:57 Vital Signs Date Time Temp Pulse Resp B/P (MAP) Pulse Ox O2 Delivery O2 Flow Rate FiO2 01/23/25 11:39 97.5 67 18 123/58 97 1220/NEUROVASCULAR CMS INTACT TO LOWER EXTREMITIES. PATIENT STATES PAIN IS IMPROVING AFTER TYLENOL WITH CODEINE. Medical Decision Making MDM MEDICAL DISCHARGE MAKING BASED ON EMPIRIC TREATMENT FOR BACK PAIN STATUS POST FALL RIGHT HIP X-RAY NEGATIVE LUMBAR X-RAY DEMONSTRATES INTACT INSTRUMENTATION FROM PRIOR SACRAL FRACTURE NEUROVASCULAR CMS INTACT LOWER EXTREMITIES DX & DISP Disposition: Discharge Departure Impression: Primary Impression: Contusion of right hip, initial encounter Additional Impressions: Back contusion, Fall Condition: Stable Additional Instructions: FOLLOW-UP WITH PRIMARY CARE PROVIDER IN 1 TO 2 DAYS. TAKE MEDICATIONS DIRECTED HERE IN THE EMERGENCY ROOM. OKAY TO CONTINUE HOME MEDICATIONS UNLESS OTHERWISE DISCUSSED DURING YOUR VISIT IN THE EMERGENCY ROOM TODAY. RETURN TO YOUR NEAREST EMERGENCY ROOM IF SYMPTOMS WORSEN OR IF THERE IS NO IMPROVEMENT. CALL 911 IF YOU NEED IMMEDIATE ASSISTANCE. TAKE TYLENOL OR MOTRIN CTFD-[id number] NEEDED AND IF NO CONTRAINDICATIONS ARE PRESENT. INCREASE ORAL HYDRATION. A WOUND CULTURE OR URINE CULTURE WAS ORDERED HERE IN THE EMERGENCY ROOM DEPARTMENT PLEASE FOLLOW-UP WITH PRIMARY CARE PROVIDER AND ADVISE THEM TO GET REPEAT PORTS FROM OUR FACILITY. IF YOU HAD ANY ALBERTINA WRAP/SPLINTS THAT WERE APPLIED HERE, PLEASE DO NOT REMOVE THEM UNTIL YOU SEE YOUR PRIMARY CARE OR SPECIALTY. COOL COMPRESSES TO PAIN THREE TO 4 TIMES A DAY. TAKE TYLENOL ARTHRITIS 650 MG/[id number] ONE EVERY8 HOURS NEEDED FOR PAIN. SEE YOUR PRIMARY CARE DOCTOR ON SATURDAY FOR FOLLOW UP AND MANAGEMENT Referrals: TIERRA STRANGE MD (PCP) Time of Disposition: 12:23 I have reviewed the case, and I agree with, Diagnosis and Plan JURGEN SALINAS [employer] Jan 23, 2025 11:45
[2025-01-23 12:36] VITALS: BP 132/56; PULSE 66; RESP 16; TEMP 98; O2SAT 99
--- NOTE | 2025-01-23 12:52 | HMCIMG ---
EXAM: CR bilateral Hips, 3 View. CLINICAL HISTORY: BILATERAL HIP PAIN STATUS POST FALL OFF COMMODE COMPARISON: None provided. FINDINGS: BONES: No acute fracture or aggressive appearing osseous lesion. JOINTS: No dislocation. The joint spaces are normal. Hardware at the lower lumbar spine. SOFT TISSUES: The soft tissues are unremarkable. IMPRESSION: No acute osseous abnormality. /[place]
--- NOTE | 2025-01-23 12:53 | HMCIMG ---
EXAM: CR Lumbar Spine, 3 View. CLINICAL HISTORY: LEFT LATERAL LUMBAR PAIN STATUS POST FALL OFF COMMODE COMPARISON: None provided. FINDINGS: The lumbar alignment is within normal limits. There are straightening of the lumbar spine that may reflect paraspinal muscle spasm. Intervertebral disc prostheses at L4-L5 with posterior instrumented fusion. No evidence of hardware failure or loosening. Severe disc disease at L5-S1. Mild disc disease at remaining lumbar levels. Vertebral body heights are maintained without displaced fracture. There is no listhesis. IMPRESSION: 1. No acute osseous injury. 2. Intervertebral disc prosthesis at L4-L5 with posterior instrumented fusion, without evidence of hardware failure or loosening. 3. Severe disc disease at L5-S1. /[place]
== END 2025-01-23 12:38 | disposition home or self-care (01) ==
LOC: EDH 11:35
DX: S70.01XA Contusion of right hip, initial encounter (principal); S20.229A Contusion of unspecified back wall of thorax, initial encounter; I10 Essential (primary) hypertension; E11.9 Type 2 diabetes mellitus without complications; Z79.899 Other long term (current) drug therapy; Z79.82 Long term (current) use of aspirin; Z79.84 Long term (current) use of oral hypoglycemic drugs; W19.XXXA Unspecified fall, initial encounter; Y93.89 Activity, other specified; Y92.89 Other specified places as the place of occurrence of the external cause; Y99.8 Other external cause status
CPT/HCPCS: 72100; 73502; 99284